=== PATIENT | male | born 2005 | race Two or more races ===

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

== ENCOUNTER 2024-08-22 08:00 | Outpatient (RCR) | payer OTHER, SELFPAY | END 2024-12-20 23:59 | disposition home or self-care (01) | PROVIDERS: Visit Provider Orthopaedic Surgery | DX: Z48.89 Encounter for other specified surgical aftercare (principal); M25.511 Pain in right shoulder; Z51.89 Encounter for other specified aftercare | CPT/HCPCS: 97110; 97140; 97161; 97530 ==